=== PATIENT | female | born 1950 | race Caucasian/White ===

== ENCOUNTER 2022-07-26 07:20 | Day surgery (SDC) | payer MEDICARE, OTHER, SELFPAY ==
[2022-07-26 07:44] VITALS: BP 149/73; PULSE 69; RESP 18; TEMP 36.3; O2SAT 95; BMI 32.0
[2022-07-26] MEDS: LACTATED RINGER'S SOLUTION 1,000 ML 50 ML IV (07:59)
[2022-07-26 08:42] VITALS: BP 120/76; PULSE 68; RESP 16; TEMP 36.3; O2SAT 96
[2022-07-26 08:57] VITALS: BP 120/86; PULSE 64; RESP 16; TEMP 36.3; O2SAT 96
--- NOTE | 2022-07-26 09:14 | PC.NURSE ---
pATIENT IS CURRENTLY EATING A SNACK AND DRINKING JUICE. DENIES ANY PAIN AT THIS TIME.
[2022-07-26 09:27] VITALS: BP 122/68; PULSE 65; TEMP 36.3; O2SAT 97
--- NOTE | 2022-07-26 15:49 | PM.GSPRC ---
Date of procedure: 07/26/22 Pre-op diagnosis: dysphagia, esophagitis Post-op diagnosis: other ( erosive esophagitis, gastritis) Procedure: EGD with biopsy Anesthesia: MAC Surgeon: Eliazar Hansen Estimated blood loss (mL): 1 Specimens: antral biopsy ?2 Complications: No
--- NOTE | 2022-07-26 16:16 | PM.ONB ---
Brief Operative Note Date of procedure: 07/26/22 Pre-op diagnosis: dysphagia, esophagitis Post-op diagnosis: other (erosive esophagitis, gastritis) Procedure: EGD with biopsy Anesthesia: MAC Surgeon: Eliazar Hansen Estimated blood loss (mL): 1 Pathology: other (antral biopsy ?2)
--- NOTE | 2022-08-05 08:36 | P.GSPRC_ITS ---
Date of procedure: 07/26/22 Indications for Procedure: Patient is a 72-year-old female who was recently evaluated for ongoing episodes of dysphagia. Previous endoscopy a few years ago apparently didn't reveal significant esophagitis and ulceration. She has been maintained on PPI therapy. With these findings EGD with possible balloon dilatation was recommended. The risks benefits options and potential applications of the procedure discussed in detail with her and she agreed to proceed and consent was signed. Pre-op diagnosis: dysphagia Post-op diagnosis: other ( Erosive esophagitis, gastritis) Procedure: EGD with biopsy Anesthesia: MAC Surgeon: Eliazar Hansen Procedure Summary: the patient was brought to the endoscopy suite andd placed in the supine upright position. Under MAC a bite block was placed. The fiberoptic endoscope was then passed through the oropharynx into the esophagus. This is easily advanced. Readily noted in the distal esophagus were marked inflammatory changes consistent with erosive esophagitis. Did not appreciate any mass lesion. The endoscope was then passed into the stomach. Here there were also noted to be in flammatory changes. The endoscope was advanced throough the pylorus into the duodenum. The 1st and 2nd portions of the duodenum were unremarkable. The endoscope was then withdrawn into the stomach and retroflexed. The upper portion of the stomach appeared grossly normal. Antral biopsies were obtained ?2. Both sites were hemostatic following this. Stomach was decompressed. The distal esophagus was then again examined with the inflammatory channges once again noted. The remainder esophaggus was grossly normal and final drill endoscope and the procedure was ended. Thhe patient tolerated the procedure well and was transferred to the recovery area in stable condition. Patient will be initiated a prescription for Carafate as she continues to have these changes on PPI therapy. Estimated blood loss (mL): 1 Specimens: antral biopsies Complications: No
== END 2022-07-26 09:36 | disposition home or self-care (01) ==
PROVIDERS: PCP Family Medicine; Visit Provider Surgery
PROC: (CPT 43239; principal; 2022-07-26 08:30)
DX: K21.9 Gastro-esophageal reflux disease without esophagitis (principal); R13.10 Dysphagia, unspecified; K29.70 Gastritis, unspecified, without bleeding; K29.50 Unspecified chronic gastritis without bleeding; Z79.82 Long term (current) use of aspirin; Z79.899 Other long term (current) drug therapy; F10.11 Alcohol abuse, in remission; J43.2 Centrilobular emphysema; Z87.891 Personal history of nicotine dependence; K22.10 Ulcer of esophagus without bleeding
CPT/HCPCS: 43239; 36415; 88305; 88342; J2704

== ENCOUNTER 2023-07-11 12:44 | Outpatient (OUT) | payer MEDICARE, OTHER, SELFPAY ==
--- NOTE | 2023-07-11 13:00 | RT_ITS ---
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 Findings were considered accurate and reproducible. Both pre- and post-bronchodilator values utilized for spirometry. Spirometry (based on pre-bronchodilator values): -FEV1/FVC: Reduced @ 54% -FEV1: Severely reduced @ 36% -FVC: Reduced @ 50% -There is a positive bronchodilator response in FVC. Lung volumes by plethysmography: -RV: Increased @ 171% -TLC: Normal @ 111% Diffusion capacity: -DLCO: Mild reduction @ 79% when corrected for Hb 11.9g/dL Flow-volume loop: -Severe obstructive pattern Prior PFT 01/03/2019: -FEV1 has decreased from 46% (1L) -FVC has decreased from 63% (1.8L) -DLCO has improved from 71% Impressions: -Severe obstruction on spirometry with positive bronchodilator response in FVC. Increased RV suggests air trapping. Mild diffusion impairment. Study suggests COPD with a bronchodilator response vs. asthma-COPD overlap. When compared to prior PFT 01/03/2019, there is a decline in spirometry though diffusion capacity has improved. Clinical correlation required. Electronically Signed On 07-11-2023 16:44:08 EDT by Haroon Benson
[2023-07-11 13:02] LABS: Hemoglobin 11.9 g/dL (12.0-16.0)
[2023-07-11] MEDS: ALBUTEROL SULFATE 2.5 MG/3 ML VIAL NEB IH (13:34)
--- NOTE | 2023-07-11 14:02 | CT_ITS ---
[address] [address] Patient Name: TINO CARRIZALES MRN: [id number] date: 1950 Sex: F Assigned Patient Location: CARD Current Patient Location: Accession/Order Number: [id number] Exam Date: 07/11/2023 14:40 Report Date: 07/12/2023 11:09 At the request of: TIFFANY BRANCH Procedure: CT lung screening low-dose EXAMINATION: CT lung screening low-dose HISTORY: Screening for malignant neoplasm of respiratory organs Z122 COMPARISON: 07/07/2022 TECHNIQUE: Axial, Coronal, and Sagittal images were created without the administration of IV contrast material. Dose reduction techniques were achieved by using automated exposure control and/or adjustment of mA and/or kV according to patient size and/or use of iterative reconstruction technique. FINDINGS: LUNGS: Scattered punctate pulmonary nodules measuring up to 4 mm, the largest in the right upper lobe, axial image #50 and right lower lobe, axial image 86. No new significant pulmonary nodule mass or infiltrate. PLEURA: No mass, effusion, or pneumothorax. VASCULATURE: No abnormality. ORQUIDEA: No mass or pathologic adenopathy. MEDIASTINUM: No mass or pathologic adenopathy. CARDIAC: No enlargement, pericardial thickening, or significant calcification. CORONARY ARTERIES: Coronary calcifications are mild. AORTA: No aneurysm or dissection. CHEST WALL: No mass or axillary adenopathy BONES: No bone lesion or fracture. LIMITED ABDOMEN: No hiatal hernia OTHER: Negative. CT/CT lung screening low-dose IMPRESSION: LUNG SCREENING: Lung-RADS Category 2- Benign Appearance or Behavior. Nodules with a very low likelihood of becoming a clinically active cancer due to size or lack of growth. 2. Continue annual screening with LDCT in 12 months. Electronically authenticated by: MADDIE MORALES Date: 07/12/2023 11:09
== END 2023-07-11 12:45 | disposition home or self-care (01) ==
LOC: CARD 12:46
PROVIDERS: PCP Family Medicine; Visit Provider Internal Medicine
DX: J43.2 Centrilobular emphysema (principal); Z12.2 Encounter for screening for malignant neoplasm of respiratory organs; Z87.891 Personal history of nicotine dependence; R91.8 Other nonspecific abnormal finding of lung field
CPT/HCPCS: 36415; 71271; 85018; 94060; 94726; 94729